=== PATIENT | female | born 1965 | race Caucasian/White ===

== ENCOUNTER 2018-01-31 16:47 | Emergency (ER) | payer MEDICARE ==
[~2018-01-31] VITALS: Ht 160 cm; Wt 50.6 kg
[2018-01-31 16:51] VITALS: BP 135/69; PULSE 82; RESP 18; TEMP 98.3; O2SAT 97
[2018-01-31] MEDS ORDERED: CLON0.5T PO (19:27)
[2018-01-31] MEDS ORDERED: NEUR600T PO (19:27)
[2018-01-31] MEDS ORDERED: TYLE325T PO (19:27)
[2018-01-31] MEDS ORDERED: SERO50TA PO (19:27)
[2018-01-31] MEDS ORDERED: TRAZ1TAB14 PO (19:27)
[2018-01-31] MEDS ORDERED: FLUT1SPR5 EACH NARE (19:27)
[2018-01-31] MEDS ORDERED: VITA1000 PO (19:28)
[2018-01-31 19:30] VITALS: BP 160/84; PULSE 61; RESP 20
[2018-01-31 20:07] VITALS: BP 118/71; PULSE 56; RESP 20; O2SAT 95
[2018-01-31 20:16] LABS: BICARBONATE 25.8 MEQ/L (21.0-32.0); CALCIUM 8.7 MG/DL (8.5-10.1)
[2018-01-31 20:20] LABS: CREATININE 0.75 MG/DL (0.50-1.00)
[2018-01-31] MEDS ORDERED: ACETAMIN 325 MG/BUTALBITAL 50 MG/CAFFEINE 40 MG TAB PO ONE (20:30)
[2018-01-31] MEDS ORDERED: SODIUM CHLOR 0.9% 1000 ML INJ 1,000 ML IV ONE (20:30)
[2018-01-31] MEDS ORDERED: PROCHLORPERAZINE INJ 10 MG/2 ML VIAL IV PUSH ONE (20:30)
[2018-01-31] MEDS ORDERED: diphenhydrAMINE HCL 50 MG/ML VIAL IV PUSH ONE (20:30)
[2018-01-31 20:34] LABS: AUTOMATED NEUTROPHIL # 7.1 TH/MM3 (1.8-7.7); BASOPHIL # 0.2 TH/MM3 (0-0.2); BASOPHIL % 1.9 % (0.0-2.0); EOSINOPHIL # 0.1 TH/MM3 (0-0.4); EOSINOPHIL % 0.7 % (0.0-4.0); HEMATOCRIT 42.7 % (35.0-46.0); HEMOGLOBIN 14.8 GM/DL (11.6-15.3); LYMPH % 22.8 % (9.0-44.0); LYMPHOCYTE # 2.3 TH/MM3 (1.0-4.8); MEAN CELL VOLUME 93.4 FL (80.0-100.0); MEAN CORPUSCULAR HEMOGLOBIN 32.2 PG (27.0-34.0); MEAN CORPUSCULAR HGB CONC 34.5 % (32.0-36.0); MONO % 4.1 % (0.0-8.0); MONOCYTE # 0.4 TH/MM3 (0-0.9); NEUT % 70.5 % (16.0-70.0); PLATELET COUNT 213 TH/MM3 (150-450); RED BLOOD COUNT 4.57 MIL/MM3 (4.00-5.30); RED CELL DISTRIBUTION WIDTH 13.6 % (11.6-17.2); WHITE BLOOD COUNT 10.1 TH/MM3 (4.0-11.0)
[2018-01-31] MEDS ORDERED: IOHEXOL 350 MG/ML 10 ML VIAL (for RAD DIAG) IVCONTRAST ONE (20:50)
--- NOTE | 2018-01-31 21:15 | PD ---
HPI Chief Complaint: Headache Time Seen by Provider: 19:10 Travel History International Travel<30 days: No Contact w/Intl Traveler<30days: No Traveled to known affect area: No History of Present Illness HPI This is a 52-year-old female who has a history of subarachnoid hemorrhage status post aneurysm clipping in 2008 who presents to the emergency department with onset of a headache that started this morning abruptly, severe, radiating from the back to the front of her head associated with multiple episodes of vomiting. She says she has had chronic migraines ever since she had her aneurysm. She usually takes Fioricet for them but she is out of it. That being said she says she has not had severe headaches for the past year and this is the worst that it has been. She says she last had a CTA in July which was normal. PFSH Past Medical History Depression: Yes Cancer: Yes (SKIN CANCER ON LEFT EAR, LEFT HAND) Diminished Hearing: No Medical other: Yes (INSOMNIA) Musculoskeletal: Yes (OSTEOMYELITIS) Tetanus Vaccination: < 5 Years Influenza Vaccination: No ?: Not Past Surgical History Abdominal Surgery: Yes ( 6 LAPS) Hysterectomy: Yes Social History Alcohol Use: No Tobacco Use: Yes (HALF PPD) Substance Use: No Allergies-Medications (Allergen,Severity, Reaction): Coded Allergies: Sulfa (Sulfonamide Antibiotics) (Verified Allergy, Severe, Anaphylaxis, ) latex (Verified Allergy, Severe, Anaphylaxis, 01/31/18) meperidine (Verified Allergy, Severe, Anaphylaxis, 01/31/18) tramadol (Verified Allergy, Severe, Anaphylaxis, 01/31/18) Reported Meds & Prescriptions Reported Meds & Active Scripts Active Reported Vitamin D-1000 (Cholecalciferol) 1,000 Unit Tab 1,000 Units PO DAILY Tylenol (Acetaminophen) 325 Mg Tab 975 Mg PO Q6H PRN Flonase Nasal [place] (Fluticasone Nasal [place]) 50 Mcg/Act [place] 50 Mcg EACH NARE BID Seroquel (Quetiapine Fumarate) 50 Mg Tab 50 Mg PO HS Trazodone (Trazodone HCl) 150 Mg Tablet 150 Mg PO HS Clonazepam 0.5 Mg Tab 0.5 Mg PO HS Neurontin (Gabapentin) 600 Mg Tab 1,200 Mg PO TID Review of Systems Except as stated in HPI: all other systems reviewed are Neg Physical Exam Narrative GENERAL:Well appearing, no acute distress SKIN: Focused skin assessment warm and dry. HEAD: Atraumatic. Normocephalic. EYES: Pupils equal and round. No injection or drainage. ENT: Moist mucous membranes NECK: Trachea midline. CARDIOVASCULAR: Regular rate and rhythm. No murmur appreciated. RESPIRATORY: Clear to auscultation. Breath sounds equal bilaterally. GASTROINTESTINAL: Abdomen soft, non-tender, nondistended. MUSCULOSKELETAL: No obvious deformities. NEUROLOGICAL: Awake and alert. No obvious cranial nerve deficits. No dysarthria or aphasia. No upper or lower extremity drift. No upper extremity ataxia. PSYCHIATRIC: Appropriate mood and affect; insight and judgment normal. Data Data Last Documented VS Vital Signs Date Time Temp Pulse Resp B/P (MAP) Pulse Ox O2 Delivery O2 Flow Rate FiO2 01/31/18 21:29 55 20 112/70 (84) 96 01/31/18 16:51 98.3 Orders Orders Complete Blood Count With Diff (01/31/18 19:36) Basic Metabolic Panel (Bmp) (01/31/18 19:36) Ct Brain W/O Iv Contrast(Rout) (01/31/18 ) Cta Brain W Iv Contrast W 3d (01/31/18 ) [facility]-Qqrbo-Rodf 325-50-40 Mg (Fioricet 3 (01/31/18 20:30) Prochlorperazine Inj (Compazine Inj) (01/31/18 20:30) Diphenhydramine Inj (Benadryl Inj) (01/31/18 20:30) Sodium Chlor 0.9% 1000 Ml Inj (Ns 1000 M (01/31/18 20:30) Iohexol 350 Inj (Omnipaque 350 Inj) (01/31/18 20:50) Labs Laboratory Tests Test 01/31/18 19:55 01/31/18 20:25 Blood Urea Nitrogen 10 MG/DL Creatinine 0.75 MG/DL Random Glucose 83 MG/DL Calcium Level 8.7 MG/DL Sodium Level 138 MEQ/L Potassium Level 4.1 MEQ/L Chloride Level 107 MEQ/L Carbon Dioxide Level 25.8 MEQ/L Anion Gap 5 MEQ/L Estimat Glomerular Filtration Rate 81 ML/MIN White Blood Count 10.1 TH/MM3 Red Blood Count 4.57 MIL/MM3 Hemoglobin 14.8 GM/DL Hematocrit 42.7 % Mean Corpuscular Volume 93.4 FL Mean Corpuscular Hemoglobin 32.2 PG Mean Corpuscular Hemoglobin Concent 34.5 % Red Cell Distribution Width 13.6 % Platelet Count 213 TH/MM3 Mean Platelet Volume 7.0 FL Neutrophils (%) (Auto) 70.5 % Lymphocytes (%) (Auto) 22.8 % Monocytes (%) (Auto) 4.1 % Eosinophils (%) (Auto) 0.7 % Basophils (%) (Auto) 1.9 % Neutrophils # (Auto) 7.1 TH/MM3 Lymphocytes # (Auto) 2.3 TH/MM3 Monocytes # (Auto) 0.4 TH/MM3 Eosinophils # (Auto) 0.1 TH/MM3 Basophils # (Auto) 0.2 TH/MM3 CBC Comment DIFF FINAL Differential Comment MDM Medical Decision Making Medical Screen Exam Complete: Yes Emergency Medical Condition: Yes Interpretation(s) Afebrile, no tachycardia, normotensive No leukocytosis Electrolytes are reassuring Last 24 hours Impressions Head CTA 01/31/18 Signed Impressions: CONCLUSION: 1. Unremarkable MRA of the [place]. Head CT 01/31/18 Signed Impressions: CONCLUSION: 1. No focal or acute intracranial hemorrhage. 2. Mild bilateral cortical atrophy overlying the frontal lobes. Differential Diagnosis Subarachnoid hemorrhage, migraine headache, tension headache Narrative Course This is a 52-year-old female who has a history of aneurysm who presents to the emergency department with a headache today. She has normal neurologic exam. She was given IV Compazine, Benadryl, Fiorcet and IV fluids and she feels much better. I performed a CT and a CTA to evaluate the patient given her history of aneurysm. Both were reassuring. I do not think any further workup is indicated. I think patient can safely be discharged home. She will follow up as an outpatient with a primary care physician. Diagnosis Primary Impression: Headache Qualified Codes: R51 - Headache Patient Instructions: General Instructions Additional Instructions: If you develop severe worsening headache, persistent vomiting, numbness, weakness, difficulty walking or difficulty talking return to the emergency department immediately. Sometimes in the emergency department we did not identify the cause of headaches. If you continued to have headaches it is very important that you followup with your primary care physician as you may need further testing with an MRI. Med/Other Pt SpecificInfo: Prescription(s) given Scripts Srvckegvrq-Fidpbtiyapbuf-Jsegnaqq (Fioricet) 50-300-40 Mg Cap 1-2 CAP PO Q6H Y for HEADACHE, #12 CAP 0 Refills Prov: Ludy Ramirez MD 01/31/18 Disposition: 01 DISCHARGE HOME Condition: Stable Ludy Ramirez MD January 31, 2018 21:15
[2018-01-31 21:29] VITALS: BP 112/70; PULSE 55; RESP 20; O2SAT 96
--- NOTE | 2018-01-31 21:42 | RADRPT ---
EXAM DATE: 01/31/2018 9:37 PM EDT AGE/SEX: 52 years / Female INDICATIONS: Cephalgia. CLINICAL DATA: This is the patient's initial encounter. Patient reports that signs and symptoms have been present for 3 days and indicates a pain score of 10/10. MEDICAL/SURGICAL HISTORY: . Patient states history of cerebral aneurysm. None. RADIATION DOSE: 44.92 CTDI (mGy) COMPARISON: No prior [facility] exams available for comparison. TECHNIQUE: CT of the head without contrast. Using automated exposure control and adjustment of the mA and/or kV according to patient size, radiation dose was kept as low as reasonably achievable to ob tain optimal diagnostic quality images. FINDINGS: Cerebrum: The ventricles are normal for age. Mild bilateral cortical atrophy overlying the frontal l obes. No evidence of midline shift, mass lesion, hemorrhage or acute infarction. No extraaxial fluid collections are seen. Posterior Fossa: The cerebellum and brainstem are intact. The 4th ventricle is midline. The cerebe llopontine angle is unremarkable. Extracranial: The visualized portion of the orbits is intact. Skull: The calvaria is intact. No evidence of skull fracture. CONCLUSION: 1. No focal or acute intracranial hemorrhage. 2. Mild bilateral cortical atrophy overlying the frontal lobes. Electronically signed by: Julio Morris MD 01/31/2018 9:41 PM EDT
--- NOTE | 2018-01-31 22:55 | RADRPT ---
EXAM DATE: 01/31/2018 10:03 PM EDT AGE/SEX: 52 years / Female INDICATIONS: Cephalgia. CLINICAL DATA: This is the patient's initial encounter. Patient reports that signs and symptoms have been present for 3 days and indicates a pain score of 10/10. MEDICAL/SURGICAL HISTORY: . Patient states history of cerebral aneurysm. None. RADIATION DOSE: 41.98 CTDI (mGy) COMPARISON: No prior [facility] exams available for comparison. TECHNIQUE: Volumetric scanning was performed using a multi-row detector CT scanner during bolus infu [place] of 75 ml Omnipaque 350 (iohexol) nonionic water-soluble contrast as a single exam dose. The d [place] was post processed with a variety of visualization algorithms including full volume maximum inten sity projection, multi-planar sliding thin slab reformation, curved planar reformation, and surface r endering techniques. Using automated exposure control and adjustment of the mA and/or kV according t o patient size, radiation dose was kept as low as reasonably achievable to obtain optimal diagnostic quality images. FINDINGS: There is excellent visualization of the major intracranial arteries out to the second-order branch ve ssels. There is no evidence for aneurysm, vessel truncation or stenosis, and no evidence for vascula r malformation. There is a patent right posterior communicating artery. . Patient states a history of previous cerebral aneurysm. However, there is no evidence of previous cerebral aneurysm surgery or c lipping. CONCLUSION: 1. Unremarkable MRA of the [place]. Electronically signed by: Julio Morris MD 01/31/2018 10:54 PM EDT
[2018-01-31] MEDS ORDERED: BUTA1CAP PO (22:59)
[2018-01-31 23:40] VITALS: BP 112/74
== END 2018-02-01 00:11 | disposition home or self-care (01) ==
LOC: PHED 16:47
DX: R51 Headache (principal); F32.9 Major depressive disorder, single episode, unspecified; M86.9 Osteomyelitis, unspecified; F17.200 Nicotine dependence, unspecified, uncomplicated; Z79.899 Other long term (current) drug therapy; Z88.2 Allergy status to sulfonamides; Z88.8 Allergy status to other drugs, medicaments and biological substances
CPT/HCPCS: 70450; 70496; 80048; 85025; 96361; 96374; 96375; 99284; J0780; J1200; J7030; Q9967